=== PATIENT | male | born 1950 | race Caucasian/White ===

== ENCOUNTER 2019-10-22 16:35 | Emergency (ER) | payer MEDICARE ==
[2019-10-22] MEDS ORDERED: ANTIVENIN,CROTALIDAE FAB(OVIN) INJ 1 VIAL IV ONE (16:47)
[2019-10-22] MEDS ORDERED: ONDANSETRON HCL INJ/PF 4 MG/2 ML SDV ONE (17:02)
[2019-10-22] MEDS ORDERED: ONDANSETRON HCL INJ/PF 4 MG/2 ML SDV IV ONE (17:04)
[2019-10-22 17:06] LABS: PROTHROMBIN TIME 13.2 SEC (11.4-15.4)
[2019-10-22] MEDS ORDERED: DIAZEPAM INJ 10 MG/2 ML DISP.SYRIN IV ONE (17:06)
--- NOTE | 2019-10-22 17:06 | ER Document Report ---
ED Animal Bite - General Chief Complaint: Snake Bite Stated Complaint: SNAKE BITE Time Seen by Provider: 10/22/19 16:46 Mode of Arrival: Medic Information source: Patient Notes: 69-year-old man resents to the emergency department history of bitten by copperhead snake today on the right thumb. He apparently went to an urgent care, found to be hypotensive and diaphoretic, EMS was called. Patient was transported to the emergency department systolic blood pressure of 86. He complains of pain in the thumb, notes that he is also claustrophobic and has anxiety. The snakebite site has progressed from the tip of the thumb into the metacarpal of the thumb and thenar area of the hand. Past medical history is significant for IN 18 months ago, hypertension, and hyperlipidemia - Related Data Allergies/Adverse Reactions: lorazepam [From Ativan] Allergy (Verified 10/22/19 17:47) morphine Allergy (Verified 10/22/19 17:47) Past Medical History - Social History Smoking Status: Unknown if Ever Smoked Frequency of alcohol use: None Drug Abuse: None Family History: Reviewed & Not Pertinent Patient has homicidal ideation: No - Past Medical History Cardiac Medical History: Reports: Hx Heart Attack, Hx Hypertension Review of Systems - Review of Systems Notes: Constitutional: Diaphoretic HENT: Negative for sore throat. Eyes: Negative for visual changes. Cardiovascular: Negative for chest pain. Respiratory: +shortness of breath. Gastrointestinal: Negative for abdominal pain, vomiting or diarrhea. Genitourinary: Negative for dysuria. Musculoskeletal: See HPI Skin: Negative for rash. Neurological: Negative for headaches, weakness or numbness. 10 point ROS negative except as marked above and in HPI. Physical Exam - Vital signs Vitals: Temp 97.5 F 10/22/19 16:38 - Notes Notes: PHYSICAL EXAMINATION: Physical Exam: General: Diaphoretic, hypotensive 69-year-old man in moderate distress secondary to shortness of breath/anxiety HEENT: NC/AT, pupils equal round and reactive to light, MM moist,nares clear, oropharynx clear, airway patent Neck: supple, no adenopathy, no masses. Good range of motion Lungs: clear, no wheezing, no rales no rhonchi CVS: Regular rate and rhythm no murmur gallop or rub Abdomen: Soft, active, nontender, no masses, no hepatosplenomegaly Ext: Right thumb with snakebite site, blood oozing from the site and a pale appearing distal phalanx, swelling that extends to the metacarpal of the right hand and into the thenar area of the right hand. Neuro: Alert and responsive, moving all 4 extremities on command, cranial nerves intact, no focal findings Skin: Intact no open lesions, no rash Course - Re-evaluation Re-evalutation: 10/22/19 17:33 Patient is blood pressure continued to be low after liter fluid bolus. The question of anaphylaxis related to the snake venom is raised, the patient is given Solu-Medrol, Benadryl 25 mg IV, Pepcid 20 mg IV. Patient has had a history of a myocardial infarction 18 months ago, we are going to hold epi nephrine at this time. CroFab 6 vials are given IV. Patient blood pressure improved 116/83, he is now complaining of increased pain in the right hand and right arm forearm. There is also progression of redness into the right forearm. A dose of hydromorphone 0.5 mg is given IV. I had spoken with the trauma center, [facility], the patient has been accepted in transfer. Airflight is being sent for transfer. A EKG was performed reveals heart rate of 60, minimal ST segment depression in the inferior leads prolonged QT interval. No acute ST or T wave abnormalities noted. - Vital Signs Vital signs: Temp Pulse Resp BP Pulse Ox 97.5 F 13 119/85 100 10/22/19 16:38 10/22/19 17:41 10/22/19 17:41 10/22/19 17:47 - Laboratory Result Diagrams: 10/22/19 16:45 10/22/19 16:45 Laboratory results interpreted by me: 10/22/19 10/22/19 10/22/19 16:45 16:45 16:45 Hgb 17.7 H RDW 14.5 H D-Dimer 1.55 H Sodium 134.3 L Potassium 3.2 L Carbon Dioxide 17 L Glucose 149 H - EKG Interpretation by Tx EKG shows normal: Sinus rhythm Rate: Normal - Rate of 60, minimal ST depression in the inferior leads, prolonged QT interval, normal axis. Critical Care Note - Critical Care Note Total time excluding time spent on procedures (mins): 60 - Critical care time spent obtaining history from patient or surrogate, discussions with consultants, development of treatment plan with patient or surrogate, evaluation of patient's response to treatment, examination of patient, ordering and performing treatments and interventions, ordering and review of laboratory studies, re- evaluation of patient's condition, ordering and review of radiographic studies and review of old charts Discharge - Discharge Clinical Impression: Snake envenomation Qualifiers: Encounter type: initial encounter Injury intent: accidental or unintentional Qualified Code(s): T63.001A - Toxic effect of unspecified snake venom, accidental (unintentional), initial encounter Anaphylaxis Qualifiers: Encounter type: initial encounter Qualified Code(s): T78.2XXA - Anaphylactic shock, unspecified, initial encounter Injury of right thumb Qualifiers: Encounter type: initial encounter Qualified Code(s): S69.91XA - Unspecified injury of right wrist, hand and finger(s), initial encounter Snake bite Qualifiers: Encounter type: initial encounter Qualified Code(s): W59.11XA - Bitten by nonvenomous snake, initial encounter Condition: Fair Disposition: [facility]
[2019-10-22 17:07] LABS: FIBRINOGEN 454 mg/dL (209-497); PARTIAL THROMBOPLASTIN TIME 30.4 SEC (23.5-35.8)
[2019-10-22] MEDS ORDERED: NORMAL SALINE 1000 ML 1,000 ML IV ONE (17:07)
[2019-10-22 17:09] LABS: D-DIMER 1.55 ug/mL (0.00-0.50)
[2019-10-22] MEDS ORDERED: DIPHENHYDRAMINE HCL 50 MG/ML VIAL IV ONE (17:09)
[2019-10-22] MEDS ORDERED: METHYLPREDNISOLONE INJ 125 MG/2 ML SDV IV ONE (17:09)
[2019-10-22] MEDS ORDERED: FAMOTIDINE INJ/PF 20 MG/2 ML SDV IV ONE (17:10)
[2019-10-22 17:11] LABS: ANION GAP 12 (5-19); BLOOD UREA NITROGEN 15 mg/dL (7-20); CALCIUM 9.6 mg/dL (8.4-10.2); CARBON DIOXIDE 17 mmol/L (22-30); CHLORIDE 105 mmol/L (98-107); CREATINE KINASE 58 U/L (55-170); GLUCOSE 149 mg/dL (75-110); POTASSIUM 3.2 mmol/L (3.6-5.0)
[2019-10-22 17:16] LABS: ABSOLUTE BASOPHILS # (AUTO) 0.1 10^3/uL (0.0-0.2); ABSOLUTE EOSINOPHILS # (AUTO) 0.1 10^3/uL (0.0-0.6); EOSINOPHILS % (AUTO) 0.8 % (0-6); HEMATOCRIT 49.3 % (37.9-51.0); HEMOGLOBIN 17.7 g/dL (13.5-17.0); MEAN CORPUSCULAR HGB CONC 35.9 g/dL (32.0-36.0); TOTAL CELLS COUNTED % (AUTO) 100 %
[2019-10-22 17:19] LABS: ABSOLUTE LYMPHOCYTES (AUTO) 3.5 10^3/uL (0.5-4.7); ABSOLUTE MONOCYTES (AUTO) 0.7 10^3/uL (0.1-1.4); ABSOLUTE NEUT (AUTO) 5.5 10^3/uL (1.7-8.2); BASOPHILS % (AUTO) 0.6 % (0-2); LYMPHOCYTES % (AUTO) 35.5 % (13-45); MEAN CORPUSCULAR HEMOGLOBIN 32.3 pg (27.0-33.4); MEAN CORPUSCULAR VOLUME 90 fl (80-97); MONOCYTES % (AUTO) 7.5 % (3-13); RED BLOOD COUNT 5.49 10^6/uL (4.35-5.55); RED CELL DISTRIBUTION WIDTH 14.5 % (11.5-14.0); SEGMENTED NEUTROPHILS % (AUTO) 55.6 % (42-78); WHITE BLOOD COUNT 9.8 10^3/uL (4.0-10.5)
[2019-10-22] MEDS ORDERED: HYDROMORPHONE HCL INJ/PF 2 MG/ML AMPULE IV ONE ×2 (17:26→17:30)
[2019-10-22 17:48] VITALS: BP 119/85
[2019-10-22 17:53] LABS: PLATELET COUNT 212 10^3/uL (150-450)
--- NOTE | 2019-10-22 22:14 | EKG REPORT ---
SEVERITY:- BORDERLINE ECG - SINUS RHYTHM MINIMAL ST DEPRESSION, INFERIOR LEADS BORDERLINE PROLONGED QT INTERVAL : Confirmed by: Piper Ivy MD 22-Oct-2019 22:13:15
== END 2019-10-22 17:55 | disposition short-term general hospital (02) ==
LOC: EDSEX → ER 16:35
DX: T63.091A Toxic effect of venom of other snake, accidental (unintentional), initial encounter (principal); T78.2XXA Anaphylactic shock, unspecified, initial encounter; F41.9 Anxiety disorder, unspecified; R61 Generalized hyperhidrosis; R06.02 Shortness of breath; I95.9 Hypotension, unspecified; I10 Essential (primary) hypertension; I25.2 Old myocardial infarction; Z88.8 Allergy status to other drugs, medicaments and biological substances; Z88.6 Allergy status to analgesic agent; Z88.5 Allergy status to narcotic agent
CPT/HCPCS: 93005; 99291; 96375; 96365; 36415; 82550; 85025; 85384; 85610; 85730; 80048; 85379; 93010; J0840; J3360; J1200; J2930; J1170; J2405; J7030; S0028